=== PATIENT | female | born 1955 | race Caucasian/White ===

== ENCOUNTER → 2016-10-25 | Outpatient (CLI) | payer BC ==
[~2016-10-25] MED LIST: CHRO1TAB7 PO; HYDR-3754 PO; RASP100C PO; SERT50TA PO; [UNRECOGNIZED DRUG - CODE] PO
--- NOTE | 2016-10-25 10:32 | Diagnostic Imaging Report ---
INDICATION: Cough for 3 weeks, dyspnea. DISCUSSION: Two views of the chest were obtained, no comparison. Low lung volumes on the frontal view. Patchy opacities are noted within the bilateral lung bases, best seen on the frontal view. Findings are nonspecific and could represent atelectasis secondary to poor inspiratory effort though an underlying pneumonia cannot be excluded. No pleural fluid or pneumothorax. Normal heart size. IMPRESSION: 1. Bibasilar opacities as described, pneumonia and/or atelectasis. Recommend clinical correlation and short-term radiographic followup. Dictated by: Dictated on workstation # [id number]
== END ==
LOC: RAD 10:07
PROVIDERS: ATTEND Family Medicine
DX: J15.8 Pneumonia due to other specified bacteria (principal)
CPT/HCPCS: 71020